=== PATIENT | female | born 1975 ===

== ENCOUNTER 2024-09-22 06:23 | Day surgery (SDC) | payer BC, SELFPAY | END 2024-09-22 08:33 | disposition home or self-care (01) | LOC: GI 06:23 | PROVIDERS: ATTENDING PHYSICIAN Internal Medicine | DX: Z12.11 Encounter for screening for malignant neoplasm of colon (principal); D12.2 Benign neoplasm of ascending colon; K57.30 Diverticulosis of large intestine without perforation or abscess without bleeding | CPT/HCPCS: 45385; 88305 ==